=== PATIENT | female | born 2000 | race Caucasian/White ===

== ENCOUNTER 2021-09-06 06:22 | Emergency (ER) | payer OTHER ==
[~2021-09-06] VITALS: Ht 175.3 cm; Wt 81.6 kg
[2021-09-06] MEDS ORDERED: ONDANSETRON 4 MG TAB.RAPDIS ONE (06:44)
--- NOTE | 2021-09-06 06:49 | NUR ---
PT BIBS C/O VOMITTING SINCE 2AM +NAUSEA "FEELING DEHYDRATED". PT ALERT AND ORIENTED X3. PT AMBULATORY WITH NON LABORED BREATHING.
[2021-09-06] MEDS ORDERED: ONDANSETRON 4 MG TAB.RAPDIS SL ONE (07:00)
[2021-09-06] MEDS ORDERED: ONDANSETRON HCL/PF 4 MG/2 ML VIAL ONE ×2 (07:09→09:04)
[2021-09-06] MEDS ORDERED: IV NS 0.9% 1,000 ML IV ONE (07:30)
[2021-09-06] MEDS ORDERED: ONDANSETRON HCL/PF - ER 4 MG/2 ML VIAL IV ONE (07:30)
[2021-09-06] MEDS ORDERED: ONDA4TAB11 PO (08:32)
--- NOTE | 2021-09-06 09:09 | NUR ---
WILL GET PICKED UP BY [facility] IN 15MINS
[2021-09-06] MEDS ORDERED: ONDANSETRON HCL/PF 4 MG/2 ML VIAL IV ONE (09:30)
--- NOTE | 2021-09-06 10:05 | NUR ---
IV removed. Catheter intact and site benign. Pressure and 4x4 applied to site. No bleeding noted.Patient discharged to home in stable condition. Written and verbal after care instructions given. Patient verbalizes understanding of instruction.
[2021-09-06 10:24] VITALS: BP 118/76
[2021-09-06] MEDS ORDERED: HALOPERIDOL LACTATE INJ 5 MG/ML VIAL IM ONE (10:30)
== END 2021-09-06 10:24 | disposition home or self-care (01) ==
LOC: ER 06:27
DX: R11.2 Nausea with vomiting, unspecified (principal); E11.9 Type 2 diabetes mellitus without complications; Z88.2 Allergy status to sulfonamides; Z60.2 Problems related to living alone; Z79.899 Other long term (current) drug therapy
CPT/HCPCS: 96361; 96374; 96376; 99284; J2405 ×3; Q0162